=== PATIENT | female | born 1975 | race Caucasian/White ===

== ENCOUNTER 2016-11-19 16:53 | Emergency (ER) | payer OTHER ==
[~2016-11-19] VITALS: Ht 180.3 cm; Wt 66.7 kg
[2016-11-19] MEDS ORDERED: CYMBALTA20 MG PO (17:43)
[2016-11-19 17:47] LABS: URINE BILIRUBIN NEGATIVE (Negative); URINE BLOOD NEGATIVE (Negative); URINE COLOR YELLOW; URINE GLUCOSE-RANDOM* NEGATIVE (Negative); URINE KETONES NEGATIVE (Negative); URINE LEUKOCYTES-REFLEX NEGATIVE (Negative); URINE PROTEIN (DIPSTICK) NEGATIVE (Negative); URINE SPECIFIC GRAVITY <= 1.005 (1.003-1.035); URINE UROBILINOGEN 0.2 E.U./dl (0.2-1.0)
[2016-11-19 17:48] LABS: ABSOLUTE NEUTROPHILS 3.7 thou/uL (1.4-8.2); BASOPHILS 1.5 % (0.0-2.0); EOSINOPHILS 1.4 % (0.0-3.0); HEMATOCRIT 38.6 % (37.0-47.0); HEMOGLOBIN 13.3 gm/dL (12.0-15.0); LYMPHOCYTES 31.8 % (24.0-44.0); MCHC 34.6 g/dL (28.0-37.0); MCV 92.7 fL (80.0-100.0); MONOCYTES 6.3 % (1.0-8.0); PLATELET COUNT 315 thou/uL (150-400); RBC 4.16 mil/uL (4.20-5.00); RDW 13.7 % (10.5-14.5); WBC 6.3 thou/uL (4.0-11.0)
[2016-11-19 17:54] LABS: CALCIUM 8.9 mg/dL (8.5-10.1); CREATININE 0.9 mg/dL (0.6-1.0); POTASSIUM 3.5 mmol/L (3.5-5.1)
[2016-11-19 17:56] LABS: MANUAL DIFF NO
[2016-11-19 19:06] VITALS: BP 116/75
== END 2016-11-19 19:07 | disposition home or self-care (01) ==
LOC: ER 16:53
PROVIDERS: Emergency Medicine
DX: T88.7XXA Unspecified adverse effect of drug or medicament, initial encounter (principal); Z88.6 Allergy status to analgesic agent; Z91.040 Latex allergy status; Z88.5 Allergy status to narcotic agent; Z88.0 Allergy status to penicillin; Z88.2 Allergy status to sulfonamides; Y92.89 Other specified places as the place of occurrence of the external cause

== ENCOUNTER 2018-02-09 12:45 | Emergency (ER) | payer OTHER ==
[~2018-02-09] VITALS: Ht 180.3 cm; Wt 68.0 kg
[~2018-02-09 12:45] MED LIST: CYMBALTA20 MG PO
[2018-02-09] MEDS ORDERED: PREDNISONE 20 M20 MG PO (14:17)
[2018-02-09] MEDS ORDERED: VENTOLIN HFA 1818 GM INH (14:17)
[2018-02-09] MEDS ORDERED: AZITHROMYCIN 2250 MG PO (14:17)
[2018-02-09 14:45] VITALS: BP 107/67
--- NOTE | 2018-02-09 22:05 | EKG ---
[address] [address] ELECTROCARDIOGRAM REPORT Name: PRICILLA EUGENE [id number] Admission: 02/09/18 Attend Phys: Discharge: 02/09/18 Date of : 71 Report #: [id number] THIS REPORT FOR: //name// [facility] ED Test Date: 2018-02-09 Test Time: 13:20:41 Pat Name: PRICILLA EUGENE Department: Room: Gender: F [employer] Work[employer]: [place] : 1975 Requested By: Jennifer Spence Order Number: [id number] MD: Royer Canales Measurements Intervals [place] Rate: 82 P: 90 [place]: 131 QRS: 55 QRSD: 74 T: 42 QT: 364 QTc: 425 Interpretive Statements Sinus rhythm No previous ECG available for comparison Electronically Signed On 02-09-2018 22:05:23 DIRECTOR [employer] by Royer Canales [email or web address] <ELECTRONICALLY SIGNED> By: oRyer Canales MD 02/09/18 2205 1320 1320 Royer Canales MD /EPI
== END 2018-02-09 14:51 | disposition home or self-care (01) ==
LOC: ER 12:45
DX: J18.9 Pneumonia, unspecified organism (principal); F17.210 Nicotine dependence, cigarettes, uncomplicated; Z88.8 Allergy status to other drugs, medicaments and biological substances; Z91.040 Latex allergy status; Z88.5 Allergy status to narcotic agent; Z88.0 Allergy status to penicillin; Z88.2 Allergy status to sulfonamides